=== PATIENT | female | born 1980 | race African-American/Black ===

== ENCOUNTER 2021-05-05 15:38 | Emergency (ER) | payer SELFPAY ==
[2021-05-05 16:01] VITALS: TEMP 98.7; BMI 26.4
[2021-05-05] MEDS ORDERED: ACETAMINOPHEN 500 MG TABLET (FP) PO ONE (18:07)
[2021-05-05 19:12] LABS: BASO % 0.4 % (0-2.0); EOS % 0.2 % (0-4.5); HEMATOCRIT 29.8 % (32.4-45.2); HEMOGLOBIN 9.8 GM/dL (10.7-15.3); LYMPH % 8.1 % (8-40); MCH 24.3 pg (25.7-33.7); MEAN CELL VOLUME 73.5 fl (80-96); MEAN PLT VOLUME 7.4 fl (7.5-11.1); MONO % 8.4 % (3.8-10.2); NEUT % 82.9 % (42.8-82.8); PLATELET COUNT 337 10^3/uL (134-434); RBC 4.05 M/mm3 (3.60-5.2); RDW 20.1 % (11.6-15.6)
[2021-05-05 19:28] LABS: CHLORIDE 102 mmol/L (98-107); SODIUM 136 mmol/L (136-145)
[2021-05-05 19:30] LABS: ALBUMIN 3.7 g/dl (3.4-5.0); ANION GAP 8 MMOL/L (8-16); BLOOD UREA NITROGEN 8.8 mg/dL (7-18); CALCIUM 9.4 mg/dL (8.5-10.1); CO2 26 mmol/L (21-32); GLUCOSE,RANDOM 101 mg/dL (74-106)
[2021-05-05 19:33] LABS: EPI CELLS 14 /uL (0-25.1); HYALINE CASTS 1 /uL (0-3.1); SGOT/AST 39 U/L (15-37); SGPT/ALT 44 U/L (13-61); URINE APPEARANCE CLOUDY; URINE BACTERIA >9,000 /uL (0-1359); URINE BILIRUBIN NEGATIVE (NEGATIVE); URINE COLOR DK YELLOW; URINE GLUCOSE (UA) NEGATIVE (NEGATIVE); URINE KETONE NEGATIVE (NEGATIVE); URINE LEUK ESTERASE 2+ (NEGATIVE); URINE NITRITE POSITIVE (NEGATIVE); URINE PROTEIN 2+ (NEGATIVE); URINE RBC 34 /uL (0-23.9); URINE WBC 1698 /uL (0-25.8)
[2021-05-05 19:34] LABS: CREATININE 0.7 mg/dL (0.55-1.3)
[2021-05-05 19:35] LABS: BILIRUBIN,TOTAL 0.6 mg/dL (0.2-1); TOT PROT 7.5 g/dl (6.4-8.2)
[2021-05-05 19:36] LABS: ALK PHOS 104 U/L (45-117)
[2021-05-05] MEDS ORDERED: CEFTRIAXONE 1 GM in DEXTROSE 5%-WATER - 100 ML IVPB ONE (19:40)
[2021-05-05] MEDS ORDERED: CEFTRIAXONE 1 GM/50 ML BAG ONE (21:34)
[2021-05-05 22:24] VITALS: BP 140/88; PULSE 96
== END 2021-05-05 22:25 | disposition home or self-care (01) ==
LOC: JER 15:38
DX: N39.0 Urinary tract infection, site not specified (principal)
CPT/HCPCS: 36415; 71046-TC-FY; 71275-TC; 76705-TC; 80053; 81003; 82550; 83690; 84484; 84703; 85025; 85379; 87086; 87186; 93005; 93010; 99285-25; C9803; Q9967; U0003; U0005

== ENCOUNTER 2022-05-02 14:42 | Emergency (ER) | payer OTHER ==
[2022-05-02 15:04] VITALS: BP 138/85; PULSE 92; RESP 18; TEMP 98; BMI 25.4
[2022-05-02] MEDS ORDERED: ALPRAZolam 1 MG TABLET PO PRN (16:26)
[2022-05-02] MEDS ORDERED: ACETAMINOPHEN 1000 MG/100 ML BAG IVPB ONE (16:26)
[2022-05-02] MEDS ORDERED: ACETAMINOPHEN INJECTION 100 ML IVPB ONE (16:32)
[2022-05-02] MEDS ORDERED: ALPRAZolam 0.25 MG TABLET ONE (16:32)
[2022-05-02 16:34] LABS: BASO % 0.5 % (0-2.0); EOS % 0.1 % (0-4.5); HEMATOCRIT 30.3 % (32.4-45.2); HEMOGLOBIN 9.7 GM/dL (10.7-15.3); LYMPH % 5.4 % (8-40); MCH 22.5 pg (25.7-33.7); MEAN CELL VOLUME 70.3 fl (80-96); MEAN PLT VOLUME 7.2 fl (7.5-11.1); MONO % 6.8 % (3.8-10.2); NEUT % 87.2 % (42.8-82.8); PLATELET COUNT 651 10^3/uL (134-434); RBC 4.31 M/mm3 (3.60-5.2); RDW 20.8 % (11.6-15.6); WHITE BLOOD COUNT 8.5 K/mm3 (4.0-10.0)
[2022-05-02 16:53] LABS: CALCIUM 9.3 mg/dL (8.5-10.1)
[2022-05-02 16:54] LABS: ALBUMIN 4.1 g/dl (3.4-5.0); BLOOD UREA NITROGEN 8.8 mg/dL (7-18)
[2022-05-02 16:58] LABS: BILIRUBIN,TOTAL 0.7 mg/dL (0.2-1); TOT PROT 8.1 g/dl (6.4-8.2)
[2022-05-02 17:03] LABS: CREATININE 0.7 mg/dL (0.55-1.3)
[2022-05-02 17:21] LABS: ANISOCYTOSIS 2+; MACROCYTOSIS 1+; TARGET CELLS 1+
== END 2022-05-02 21:05 | disposition home or self-care (01) ==
LOC: JER 14:42
PROC: 3E0333Z Introduction of Anti-inflammatory into Peripheral Vein, Percutaneous Approach (ICD-10-PCS; principal; 2022-05-02)
DX: K70.10 Alcoholic hepatitis without ascites (principal); K76.0 Fatty (change of) liver, not elsewhere classified
CPT/HCPCS: 36415; 71046-TC-FY; 71275-TC; 80053; 84484; 85025; 85379; 93005; 93010; 99285-25; Q9967